=== PATIENT | male | born 1960 | race African-American/Black ===

== ENCOUNTER 2020-09-18 01:55 | Emergency (ER) | payer MEDICAID ==
[~2020-09-18] VITALS: Ht 167.6 cm; Wt 100.0 kg
[~2020-09-18 01:55] MED LIST: AMLO5TAB4 PO; BECL8.7A6 INH; CYCL5TAB PO; HYDR25TA PO; LOSA100T32 PO; LOSA50TA41 PO
[2020-09-18 02:04] VITALS: BP 119/67
[2020-09-18 03:58] LABS: BASOPHILS % 0.5 % (0.0-2.0); HEMATOCRIT. 46.6 % (42.0-52.0); MEAN CORPUSCULAR HEMOGLOBIN 29.6 pg (28.0-32.0); MEAN CORPUSCULAR VOLUME 86.5 fL (80.0-94.0); MEAN PLATELET VOLUME 7.7 fl (7.4-10.4); MONOCYTES % 6.4 % (2.0-8.0); NEUTROPHILS % 64.1 % (40.0-76.0); PLATELET 178 x1000/uL (130-400); RED BLOOD CELL COUNT 5.39 mill/uL (4.7-6.1); RED CELL DISTRIBUTION WIDTH 14.7 % (11.6-14.6)
[2020-09-18 04:04] LABS: CHLORIDE 97 mEq/L (98-107)
== END 2020-09-18 04:59 | disposition home or self-care (01) ==
LOC: ER 01:58
DX: Z20.828 Contact with and (suspected) exposure to other viral communicable diseases (principal); E11.9 Type 2 diabetes mellitus without complications; I10 Essential (primary) hypertension; J45.909 Unspecified asthma, uncomplicated
CPT/HCPCS: 36415; 71045; 80053; 85025; 99284